=== PATIENT | male | born 2000 | race Caucasian/White ===

== ENCOUNTER 2021-08-01 08:33 | Emergency (ER) | payer MEDICAID, SELFPAY ==
[2021-08-01] VITALS (41 sets, daily range): BP systolic 129–160; BP diastolic 80–110; PULSE 53–80; RESP 12–25; TEMP 36.4; O2SAT 98–100
--- NOTE | ~2021-08-01 | XR_ITS ---
EXAMINATION: XR elbow LT 2V DATE: 08/01/2021 10:52 INDICATION: Left elbow dislocation status post reduction. TECHNIQUE: 2 views of left elbow were obtained. COMPARISON: Left elbow radiographs at 9:14 AM FINDINGS: Bone alignment is normal. No fracture. Joint spaces are normal. There is an elbow joint eff usion. IMPRESSION: 1. Normal alignment at the elbow joint. 2. Elbow joint effusion. No fracture identified. Reviewed, dictated and finalized at location B.
--- NOTE | ~2021-08-01 | XR_ITS ---
EXAMINATION: XR chest 1V DATE: 08/01/2021 09:27 INDICATION: Fall from ladder with left elbow dislocation. TECHNIQUE: AP view of the chest was obtained COMPARISON: None FINDINGS: The lungs are clear with no focal airspace opacities, pulmonary edema, pleural effusion or pneumothor ax. The cardiomediastinal silhouette is normal. Visualized bones and soft tissues are unremarkable. IMPRESSION: 1. Normal chest radiograph. Reviewed, dictated and finalized at location A. IMPRESSION: 1. Normal chest radiograph.
--- NOTE | ~2021-08-01 | XR_ITS ---
EXAMINATION: XR elbow LT min 3V DATE: 08/01/2021 09:27 INDICATION: Left elbow deformity post fall from ladder TECHNIQUE: Anteroposterior, oblique and lateral views of the left elbow were obtained. COMPARISON: None. FINDINGS: Posterior dislocation of both the radial capitellar and ulnar trochlear articulations of the left elb ow joint. No fracture identified. Soft tissues are unremarkable. IMPRESSION: 1. Posterior dislocation of the left elbow without evident fracture. Reviewed, dictated and finalized at location A.
--- NOTE | 2021-08-01 09:14 | PC.NURSE ---
Patient off unit to radiology.
[2021-08-01] MEDS: ONDANSETRON INJ 4 MG/2 ML VIAL IV PUSH (09:28)
[2021-08-01] MEDS: HYDROmorphone HCL INJ (*CRX) 1 MG/ML SYR IV PUSH (09:28)
--- NOTE | 2021-08-01 09:36 | ED.FALL ---
HPI - Fall General Chief Complaint: Fall Stated Complaint: L ELBOW INJURY Time Seen by Provider: 08/01/21 08:44 Source: patient and RN notes reviewed Mode of arrival: ambulatory Limitations: no limitations History of Present Illness HPI Narrative: This is a 20 year old male right hand dominant who presents for evaluation of left elbow pain s/p fall. Patient states he fell off a stand from 8 feet up . He states he land mostly on his left elbow. He denies hitting his head or LOC. He also denies neck pain or lower extremity pain. He is unable to move his left arm due to severe pain at his elbow. Related Data Allergies Allergy/AdvReac Type Severity Reaction Status Date / Time No Known Allergies Allergy Verified 08/01/21 08:44 Review of Systems Review of Systems: All systems reviewed & are unremarkable except as noted in HPI and below Constitutional: Constitutional: Denies chills and Denies fatigue Eyes: Eyes: Denies change in vision and Denies photophobia Cardiovascular: Cardiovascular: Denies chest pain and Denies rapid heart rate Respiratory: Respiratory: Denies chest congestion and Denies cough Gastrointestinal: Gastrointestinal: Denies abdominal pain, Denies nausea and Denies vomiting Musculoskeletal: Musculoskeletal: Reports arthralgias (left elbow) Neurologic: Denies headache(s), Denies focal weakness and Denies numbness PMFSH Past Medical History Medical History (Updated 08/01/21 @ 11:13 by Anel Danielle MD) Patient denies medical problems Surgical History Surgical History (Updated 08/01/21 @ 09:39 by Anel Danielle MD) No pertinent past surgical history Social History Social History (Updated 08/01/21 @ 09:39 by Anel Danielle MD) Smoking packs per day: 1 Smoking cigarettes per day: 20.0 Smoking status: Current every day smoker Exam Const: General: alert Nutritional Appearance: well nourished Orientation/consciousness: patient oriented x3 Limitations: no limitations HENMT: Head: normal to inspection, no hematomas and no lacerations General nose exam: Normal external nose present Face and sinus: normal facial exam Eyes: Pupils: Equal, round and reactive pupils present EOM: EOMs intact bilaterally Neck: Neck: normal visual inspection Chest: Chest palpation & inspection: normal inspection of the chest Resp: Effort & Inspection: normal respiratory effort Auscultation: clear to auscultation bilaterally Cardio: Rate: regular rate Rhythm: regular rhythm Heart sounds: no murmurs GI: GI Palp: Yes Soft to palpation, No Tenderness to palpation present (GI), No Guarding due to palpation present (GI) and No Rigid due to palpation Auscultation: normal bowel sounds Back/Spine/Pelvis: Cervical Spine: cervical ROM normal, No cervical muscular tenderness, No pain with cervical ROM and No Cervical spine tenderness Skin: General skin exam: normal color Rashes: no rashes Wounds: no wounds Neuro: General: patient oriented x3, moves all extremities and CN's II-XI intact bilaterally Extrem: Other: left elbow deformity. PAtient unable to flex at elbow Course Consultations Consultation #1: I spoke with Dr. Braden who reviewed the xrays. He agrees patient can follow up in clinic. Date: 08/01/21 Time: 11:08 Vital Signs Vital signs: Vital Signs Temperature 97.6 F 08/01/21 08:37 Pulse Rate 64 08/01/21 08:37 Respiratory Rate 18 08/01/21 08:37 Blood Pressure 145/99 H 08/01/21 08:37 Pulse Oximetry 99 08/01/21 08:37 Oxygen Delivery Room Air 08/01/21 08:37 Temperature 97.6 F 08/01/21 08:37 Pulse Rate 67 08/01/21 11:46 Respiratory Rate 21 H 08/01/21 11:45 Blood Pressure 132/84 08/01/21 11:46 Pulse Oximetry 100 08/01/21 11:46 Oxygen Delivery Room Air 08/01/21 10:54 Procedures Orthopedic Joint Reduction Joint #1: Orthopedic Joint Reduction Date: 08/01/21 Orthopedic Joint Reduction Time: 10:43 Time
[2021-08-01] MEDS: LACTATED RINGERS 1,000 ML 999 ML IV CONT (09:51)
--- NOTE | 2021-08-01 09:56 | PC.NURSE ---
Written consent obtained for left elbow reduction with procedural sedation.
[2021-08-01] MEDS: PROPOFOL IV EMULSION 200 MG/20 ML VIAL (10:39)
--- NOTE | 2021-08-01 10:50 | PC.NURSE ---
Shoulder immobilizer applied as per verbal order from Dr. Danielle.
== END 2021-08-01 12:11 | disposition home or self-care (01) ==
PROVIDERS: Emergency Provider General Practice
DX: S53.125A Posterior dislocation of left ulnohumeral joint, initial encounter (principal); F17.210 Nicotine dependence, cigarettes, uncomplicated; W14.XXXA Fall from tree, initial encounter
CPT/HCPCS: 24600; 71045; 73070; 73080; 96374; 96375; 99285; J1170; J2405; J2704; J7120